=== PATIENT | male | born 1990 | race American Indian/Alaskan Native ===

== ENCOUNTER 2019-03-17 18:45 | Emergency (ER) | payer OTHER ==
[2019-03-17 19:36] VITALS: BP 117/73
--- NOTE | 2019-03-17 19:36 | Event Note ---
ED Screening Note Date of service: 03/17/19 Time: 19:32 ED Screening Note: 28 y/o male comes in for possible spider bite 4 days ago. Having pain, swelling to left thigh. This initial assessment/diagnostic orders/clinical plan/treatment(s) is/are subject to change based on patients health status, clinical progression and re- assessment by fellow clinical providers in the ED. Further treatment and workup at subsequent clinical providers discretion. Patient/guardian urged not to elope from the ED as their condition may be serious if not clinically assessed and managed. Initial orders include:
[2019-03-17] MEDS ORDERED: BOOSTRIX IM ONE (19:38)
[2019-03-17] MEDS ORDERED: CLEOCIN 300 MG/50 mL 300 MG/50 ML BAG IV ONE (19:38)
[2019-03-17] MEDS ORDERED: TORADOL IV ONE (19:39)
--- NOTE | 2019-03-17 19:41 | Emergency Department Report ---
ED Animal Bite HPI - General Chief Complaint: Animal Bite Stated Complaint: INSECT BITE Source: patient Mode of arrival: Ambulatory Limitations: No Limitations - History of Present Illness Initial Comments: 28 y/o male comes in for possible spider bite 4 days ago. Having pain, swelling to left thigh. Denies any fevers n/v. No PMH. Not up to date on tetanus Complaint: other Left: Thigh Animal: other (insect) Description: immunizations unknown Mechanism: bite Severity scale (0 -10): 9 Associated Symptoms: erythema - Related Data Patient Tetanus UTD: No Previous Rx's Medication Instructions Recorded Last Taken Type Clindamycin [Clindamycin CAP] 150 mg PO Q8HR #30 capsule 03/17/19 Unknown Rx Ibuprofen [Motrin 800 MG tab] 800 mg PO Q8HR PRN #30 tablet 03/17/19 Unknown Rx Allergies Allergy/AdvReac Type Severity Reaction Status Date / Time No Known Allergies Allergy Verified 03/17/19 19:36 ED Review of Systems ROS: Stated complaint: INSECT BITE Other details as noted in HPI Comment: All other systems reviewed and negative ED Past Medical Hx - Social History Smoking Status: Current Every Day Smoker Substance Use Type: None - Medications Home Medications: Home Medications Medication Instructions Recorded Confirmed Last Taken Type Clindamycin [Clindamycin CAP] 150 mg PO Q8HR #30 capsule 03/17/19 Unknown Rx Ibuprofen [Motrin 800 MG tab] 800 mg PO Q8HR PRN #30 tablet 03/17/19 Unknown Rx ED Physical Exam - General Limitations: No Limitations General appearance: alert, in no apparent distress - Head Head exam: Present: atraumatic, normocephalic - Eye Eye exam: Present: normal appearance ED Course Vital Signs 03/17/19 19:34 Temperature 98.8 F Pulse Rate 67 Respiratory 16 Rate Blood Pressure 117/73 O2 Sat by Pulse 99 Oximetry Critical care attestation.: If time is entered above; I have spent that time in minutes in the direct care of this critically ill patient, excluding procedure time. ED Disposition Clinical Impression: Insect bite of thigh, infected Disposition: DC-01 TO HOME OR SELFCARE Is pt being admited?: No Does the pt Need Aspirin: No Condition: Stable Additional Instructions: Complete your antibiotics as prescribed take pain medications as needed. Follow up with a Primary Care provider. Prescriptions: Clindamycin [Clindamycin CAP] 150 mg PO Q8HR #30 capsule Ibuprofen [Motrin 800 MG tab] 800 mg PO Q8HR PRN #30 tablet PRN Reason: Pain , Severe (7-10) Referrals: [facility] [Outside] - 3-5 Days Forms: Work/School Release Form(ED)
== END 2019-03-17 22:00 | disposition home or self-care (01) ==
LOC: ED 18:45
DX: S70.362A Insect bite (nonvenomous), left thigh, initial encounter (principal); F17.200 Nicotine dependence, unspecified, uncomplicated; X58.XXXA Exposure to other specified factors, initial encounter; Y93.89 Activity, other specified; Y92.89 Other specified places as the place of occurrence of the external cause; Y99.8 Other external cause status
CPT/HCPCS: 90471; 90715; 96365; 96375; 99282; J1885

== ENCOUNTER 2019-03-19 13:40 | Emergency (ER) | payer SELFPAY ==
--- NOTE | 2019-03-19 14:03 | Emergency Department Report ---
Blank Doc - Documentation Documentation: Patient reports spider bite and was here 2 days ago. Pt report he was sent home from work for abscess. Reports antibiotic and not getting worst Pt stable. no fever or chills
[2019-03-19] MEDS ORDERED: TRIPLE ANTIBIOTIC TP ONE (14:11)
--- NOTE | 2019-03-19 14:15 | Emergency Department Report ---
ED Recheck HPI - General Chief Complaint: Skin/Abscess/Foreign Body Stated Complaint: SPIDER BITE Time Seen by Provider: 03/19/19 13:59 Source: patient Mode of arrival: Ambulatory Limitations: No Limitations - History of Present Illness Initial Comments: HERE FOR DRESSING CHANGE TO LEG SPIDER BITE. SEEN HERE FRIDAY. PT STATES JOB SENT HIM TO GET A DRESSING DONE. PT TOLD RN IN TRIAGE HE NEEDS MORE TIME OFF WORK. VSS AMBULATORY NON TOXIC - Related Data Previous Rx's Medication Instructions Recorded Last Taken Type Clindamycin [Clindamycin CAP] 150 mg PO Q8HR #30 capsule 03/17/19 Unknown Rx Ibuprofen [Motrin 800 MG tab] 800 mg PO Q8HR PRN #30 tablet 03/17/19 Unknown Rx Allergies Allergy/AdvReac Type Severity Reaction Status Date / Time No Known Allergies Allergy Verified 03/19/19 13:42 ED Review of Systems ROS: Stated complaint: SPIDER BITE Other details as noted in HPI Comment: All other systems reviewed and negative ED Past Medical Hx - Past Medical History Previous Medical History?: No - Surgical History Past Surgical History?: No - Social History Smoking Status: Current Every Day Smoker Substance Use Type: None - Medications Home Medications: Home Medications Medication Instructions Recorded Confirmed Last Taken Type Clindamycin [Clindamycin CAP] 150 mg PO Q8HR #30 capsule 03/17/19 Unknown Rx Ibuprofen [Motrin 800 MG tab] 800 mg PO Q8HR PRN #30 tablet 03/17/19 Unknown Rx ED Physical Exam - General Limitations: No Limitations General appearance: alert - Head Head exam: Present: normocephalic - Eye Eye exam: Present: normal appearance - ENT ENT exam: Present: mucous membranes moist - Cardiovascular Cardiovascular Exam: Present: regular rate - Neurological Exam Neurological exam: Present: alert, oriented X3 - Skin Skin exam: Present: warm, intact, other (bite healing well; here for dressing change. ) ED Course Vital Signs 03/19/19 13:56 Temperature 98 F Pulse Rate 69 Respiratory 18 Rate Blood Pressure 130/71 O2 Sat by Pulse 99 Oximetry ED Recheck MDM - Core Measures Measure Exclusions: not indicated - Differential Diagnosis Wound Recheck - Medical Decision Making healing wound redressed for pt dc home with same plan of care as given Friday follow up with PCP for additional time off work. VSS no fever no drainage suggestive of infection no necrosis ambulatory with no pain Vital Signs 03/19/19 13:56 Temperature 98 F Pulse Rate 69 Respiratory 18 Rate Blood Pressure 130/71 O2 Sat by Pulse 99 Oximetry Critical care attestation.: If time is entered above; I have spent that time in minutes in the direct care of this critically ill patient, excluding procedure time. ED Disposition Clinical Impression: Insect bite of thigh, infected, Encounter for wound re-check Disposition: DC- TO HOME OR SELFCARE Is pt being admited?: No Does the pt Need Aspirin: No Condition: Stable Additional Instructions: CLEAN WOUND WITH SOAP AND WATER TWICE PER DAY COVER WITH GAUZE MEDS INSTRUCTED THE OTHER DAY FOLLOW UP WITH PCP IF PROBLEMS PERSIST REFERRAL BELOW Referrals: HILLARY WYNN MD [Staff Physician] - 3-5 Days Time of Disposition: 14:13
[2019-03-19 15:05] VITALS: BP 130/70
== END 2019-03-19 15:05 | disposition home or self-care (01) ==
LOC: ED 13:40
DX: Z48.01 Encounter for change or removal of surgical wound dressing (principal)
CPT/HCPCS: A6250

== ENCOUNTER 2021-09-19 11:10 | Emergency (ER) | payer SELFPAY ==
--- NOTE | 2021-09-19 14:26 | Emergency Department Report ---
HPI - General Chief Complaint: Extremity Injury, Lower - HPI HPI: MSE 7 The patient is a 30-year-old male present with a chief complaint of right foot infection/sore. The patient states 3 days ago he took off his shoe and noticed there was some denuded skin on the dorsum of his foot. When asked if there was an injury patient states he is not certain he just does not recall 1 specifically. Patient states there was some swelling at some point but the swelling then resolved. Patient states he came to the emergency department to see if it was infected. ED Past Medical Hx - Past Medical History Previous Medical History?: No - Surgical History Past Surgical History?: No - Family History Family history: no significant - Social History Smoking Status: Current Every Day Smoker (1/3 pack/day) Substance Use Type: None (Denies illicit drug use) - Medications Home Medications: Home Medications Medication Instructions Recorded Confirmed Last Taken Type Clindamycin [Clindamycin CAP] 150 mg PO Q8HR #30 capsule 03/17/19 Unknown Rx Ibuprofen [Motrin 800 MG tab] 800 mg PO Q8HR PRN #30 tablet 03/17/19 Unknown Rx cephALEXin [Keflex] 500 mg PO Q8HR #21 cap 09/19/21 Unknown Rx ED Review of Systems ROS: Stated complaint: EXTREMITY INJURY Other details as noted in HPI Constitutional: denies: fever Eyes: denies: eye pain ENT: denies: throat pain Respiratory: no symptoms reported Cardiovascular: denies: chest pain Endocrine: no symptoms reported Gastrointestinal: denies: abdominal pain Skin: lesions Neurological: denies: headache Physical Exam - Physical Exam Vital Signs: Vital Signs 09/19/21 11:29 Temperature 97.8 F Pulse Rate 58 L Respiratory 17 Rate Blood Pressure 106/65 O2 Sat by Pulse 99 Oximetry Physical Exam: GENERAL: The patient is well-developed well-nourished male sitting in chair not appearing to be in acute distress. [] HEENT: Normocephalic. Atraumatic. Extraocular motions are intact. Patient has moist mucous membranes. NECK: Supple. Trachea midline CHEST/LUNGS: There is no respiratory distress noted. HEART/CARDIOVASCULAR: Regular. There is no tachycardia. 2+ right DP SKIN: There is a subacute appearing open sore approximately 2 cm in diameter to the dorsum of the right foot. Pale margin of erythema appreciated. There is no active drainage or fluctuance NEURO: The patient is awake, alert, and oriented. The patient is cooperative. GCS 15. The patient has normal speech MUSCULOSKELETAL:There is no evidence of acute injury. ED Course Vital Signs 09/19/21 11:29 Temperature 97.8 F Pulse Rate 58 L Respiratory 17 Rate Blood Pressure 106/65 O2 Sat by Pulse 99 Oximetry ED Medical Decision Making - Differential Diagnosis Sore Critical care attestation.: If time is entered above; I have spent that time in minutes in the direct care of this critically ill patient, excluding procedure time. ED Disposition Clinical Impression: Wound of foot Disposition: HOME / SELF CARE / HOMELESS Is pt being admited?: No Does the pt Need Aspirin: No Condition: Stable Instructions: Wound Care, Adult Additional Instructions: Return to the emergency department should you develop worsening symptoms, inability to tolerate food or liquids, high fever or any other concerns Prescriptions: cephALEXin [Keflex] 500 mg PO Q8HR #21 cap Referrals: PRIMARY CARE [Primary Care Provider] - 3-5 Days [facility] [Provider Group] - 3-5 Days Time of Disposition: 14:28
[2021-09-19 14:48] VITALS: BP 119/76
== END 2021-09-19 14:48 | disposition home or self-care (01) ==
LOC: ED 11:10
DX: T81.49XA Infection following a procedure, other surgical site, initial encounter (principal); L08.9 Local infection of the skin and subcutaneous tissue, unspecified; F17.200 Nicotine dependence, unspecified, uncomplicated; X58.XXXA Exposure to other specified factors, initial encounter; Y93.89 Activity, other specified; Y92.89 Other specified places as the place of occurrence of the external cause; Y99.8 Other external cause status
CPT/HCPCS: 99282